=== PATIENT | female | born 1980 | race Caucasian/White ===

== ENCOUNTER 2017-05-10 18:30 | Emergency (ER) | payer SELFPAY ==
[~2017-05-10] VITALS: Ht 160 cm; Wt 87.0 kg
[2017-05-10 18:37] VITALS: BP 141/87
== END 2017-05-10 19:10 | disposition left against medical advice (07) ==
LOC: ER 19:07
DX: I10 Essential (primary) hypertension (principal); Z53.21 Procedure and treatment not carried out due to patient leaving prior to being seen by health care provider